=== PATIENT | male | born 1975 | race Caucasian/White ===

== ENCOUNTER 2017-06-28 09:36 | Emergency (ER) | payer MEDICAID, SELFPAY ==
[~2017-06-28] VITALS: Ht 188 cm; Wt 106.6 kg
[~2017-06-28 09:36] MED LIST: BENADRYL25 MG PO; PREDNISONE20 MG PO; RANITIDINE HCL150 MG PO
[2017-06-28 09:40] VITALS: BP 128/85
[2017-06-28 09:47] VITALS: BP 132/84
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
[2017-06-28] MEDS ORDERED: IBUPROFEN600 MG ORAL (10:46)
--- NOTE | 2017-06-28 10:57 | Emergency Room Report ---
History of Present Illness General Chief Complaint: Pain Source: Patient Present Illness HPI 42YOM walk-in with pain to base of right foot Not sure if he injured it Drinking last night, ?fell No history of gout, RA, OA. Denies previous joint pain/swelling/redness Drinks a lot of beer, eats meat/cheese Allergies: Coded Allergies: No Known Allergies (Unverified , 08/17/12) Patient History Past Medical History: none Past Surgical History: none Pertinent Family History: none Social History: Reports: alcohol use, Denies: smoking, drug use Immunizations: UTD Reviewed Nursing Documentation: PMH: Agreed, PSxH: Agreed Nursing Documentation-PMH Past Medical History: No Stated History Review of Systems All Other Systems: negative except mentioned in HPI Physical Exam Vital Signs Date Time Temp Pulse Resp B/P (MAP) Pulse Ox O2 Delivery O2 Flow Rate FiO2 06/28/17 09:40 97.0 102 15 128/85 99 Room Air Sp02 EP Interpretation: reviewed, normal General Appearance: normal inspection, well appearing, no apparent distress, alert, GCS 15, non-toxic Head: normocephalic, atraumatic Eyes: bilateral eye PERRL, bilateral eye EOMI ENT: normal ENT inspection, hearing grossly normal, normal voice Neck: normal inspection, full range of motion, supple, no bony tend Respiratory: normal inspection, lungs clear, normal breath sounds, no respiratory distress, no retraction, no wheezing Cardiovascular #1: regular rate, rhythm, no edema Gastrointestinal: normal inspection, normal bowel sounds, non tender, soft, no guarding, no hernia Genitourinary: no CVA tenderness Musculoskeletal: other - Right foot: base of right big toe tender, mild swelling. ROM intact. No deformity. No appreciable warmth. No erythema Neurologic: normal inspection, alert, oriented x3, responsive, environmental programs manager III-XII nml as tested, motor strength/tone normal, speech normal Psychiatric: normal inspection, judgement/insight normal, mood/affect normal Medical Decision Making Diagnostic Impression: Primary Impression: Right foot pain ER Course VSS. Afebrile No sign of infection, cellulitis No appreciable warmth, swelling ?gout Xray negative for fx Indomethacin given in ED Rx Ibuprofen PMD followup DC home Last Vital Signs Date Time Temp Pulse Resp B/P (MAP) Pulse Ox O2 Delivery O2 Flow Rate FiO2 06/28/17 09:47 96.9 101 14 132/84 99 Room Air Status: improved Disposition: HOME, SELF-CARE Condition: Improved Scripts Ibuprofen* (MOTRIN*) 600 Mg Tablet 600 MG ORAL THREE TIMES A DAY for 7 Days, #30 TAB 0 Refills Prov: MARQUIS GOMEZ M.D. 06/28/17 Patient Instructions: Foot Sprain Additional Instructions: - Place foot in ice/water bath 3x a day - Take ibuprofen up to 3x a day for pain MARQUIS GOMEZ M.D. Jun 28, 2017 10:57
[2017-06-28] MEDS ORDERED: Indomethacin 75 MG CAPSULE.ER ORAL SCH (11:00)
[2017-06-28 11:07] VITALS: BP 132/84
== END 2017-06-28 11:07 | disposition home or self-care (01) ==
LOC: EMR 10:05
DX: M79.671 Pain in right foot (principal); M79.5 Residual foreign body in soft tissue
CPT/HCPCS: 99283

== ENCOUNTER 2018-02-03 18:51 | Emergency (ER) | payer MEDICAID ==
[~2018-02-03] VITALS: Ht 188 cm; Wt 113.4 kg
[~2018-02-03 18:51] MED LIST changes: +IBUPROFEN600 MG ORAL
[2018-02-03] MEDS ORDERED: NKM (19:03)
[2018-02-03 19:20] VITALS: BP 116/79
[2018-02-03] MEDS ORDERED: CEPHALEXIN500 MG ORAL (19:33)
[2018-02-03] MEDS ORDERED: BACTRIM DS TAB1 EAC1 ORAL (19:33)
--- NOTE | 2018-02-03 19:34 | Emergency Room Report ---
History of Present Illness General Chief Complaint: Skin Rash/Abscess Source: Patient Present Illness HPI 42 yo male patient presents to ER complaining of infection on right leg x2 days. Patient reports small pimple on leg appeared. States he "popped it" and noticed his leg got much more red and swollen the next day. Patient able to ambulate independently. Patient denies past medical hx. Reports smoking cigarettes and weed. Denies drug use. Denies fever, chest pain, SOB, vomiting, diarrhea. Allergies: Coded Allergies: No Known Allergies (Unverified , 02/03/18) Patient History Past Medical History: see triage record Reviewed Nursing Documentation: PMH: Agreed; PSxH: Agreed Nursing Documentation-PMH Past Medical History: No Stated History Review of Systems All Other Systems: negative except mentioned in HPI Physical Exam Vital Signs Date Time Temp Pulse Resp B/P (MAP) Pulse Ox O2 Delivery O2 Flow Rate FiO2 02/03/18 18:59 98.6 84 16 116/79 95 Room Air 98.6 Sp02 EP Interpretation: reviewed, normal General Appearance: well appearing, no apparent distress, alert, GCS 15, non- toxic Head: normocephalic, atraumatic Eyes: bilateral eye normal inspection, bilateral eye PERRL Respiratory: lungs clear, normal breath sounds, no rhonchi, no respiratory distress, no accessory muscle use, no wheezing, speaking full sentences Cardiovascular #1: regular rate, rhythm, no edema Cardiovascular #2: 2+ dorsalis pedis (R), 2+ dorsalis pedis (L) Musculoskeletal: back normal, digits/nails normal, gait/station normal, normal range of motion, non-tender Neurologic: alert, oriented x3, responsive, motor strength/tone normal, sensory intact Psychiatric: mood/affect normal Skin: other - cellulitis right lateral aspect of lower lecm x7cm, indurated, umu with pressure, no active draining,dried pus and blood present Lymphatic: no adenopathy Medical Decision Making PA Attestation Dr. Shelley is my supervising Physician whom patient management has been discussed with. Diagnostic Impression: Primary Impression: Cellulitis ER Course Pt. presents to the ED c/o cellulitis. Ddx considered but are not limited to rash, cellulitis, abscess, atopic dermatitis. Vital signs: are WNL, pt. is afebrile ORDERS: None required at this time, the diagnosis is clinical ER COURSE: Area of infection circled with skin marking pen. 10cm x 7cm, indurated. Does not require drainage at this time, already draining , indurated. Will treat with abx. Will cover for MRSA. Wound cleaned, covered with Bacitracin, dressed in sterile gauze. Return to ER or got to PCP in 2 days for recheck. May require IV abx at that time. Contact primary care provider to set up appointment. DISCHARGE: -Rx provided for Keflex -Rx provided for Bactrim At this time pt. is stable for d/c to home. Patient resting comfortably in no acute distress, nontoxic appearing, smiling. Will provide printed patient care instructions, and any necessary prescriptions. Patient instructed to complete current course of antibiotics. Care plan and follow up instructions have been discussed with the patient prior to discharge. Patient instructed to follow-up with primary care provider in 2 days for wound check and in 7 days for repeat wound check. Patient questions asked and answered. Patient reports understanding and agreement to treatment plan. ER precautions given. Patient instructed to return to ER immediately for any new or worsening of symptoms including but not limited to increasing SOB, persistent fever, intractable vomiting, calf pain. Last Vital Signs Date Time Temp Pulse Resp B/P (MAP) Pulse Ox O2 Delivery O2 Flow Rate FiO2 02/03/18 18:59 98.6 84 16 116/79 95 Room Air 98.6 Disposition: HOME, SELF-CARE Condition: Stable Scripts Trimethoprim/Sulfamethoxazole 160/800* (BACTRIM DS TABLET*) 1 Each Tablet 1 TAB ORAL TWICE A DAY for 7 Days, #14 TAB Prov: Harry Zabala 02/03/18 Cephalexin* (KEFLEX*) 500 Mg Capsule 500 MG ORAL EVERY 12 HOURS, #14 CAP 0 Refills Prov: Harry Zabala 02/03/18 Patient Instructions: Cellulitis, [id number] Additional Instructions: Followup with primary care provider or return to ER in 2 days for wound check. Take medications as directed. Patient questions asked and answered. ER precautions given, patient instructed to return to ER immediately for any new or worsening of symptoms spreading of infection beyond pen marking on skin, fever, intractable vomiting. Harry Zabala Feb 03, 2018 19:34
[2018-02-03] MEDS: Bacitracin Oint UD TOPIC ONE (19:42)
[2018-02-03 19:47] VITALS: BP 116/79
== END 2018-02-03 20:15 | disposition home or self-care (01) ==
LOC: EMR 20:08
DX: L03.115 Cellulitis of right lower limb (principal)
CPT/HCPCS: 99284

== ENCOUNTER 2018-02-05 15:50 | Emergency (ER) | payer MEDICAID ==
[~2018-02-05] VITALS: Ht 188 cm; Wt 113.4 kg
[~2018-02-05 15:50] MED LIST changes: +BACTRIM DS TAB1 EAC1 ORAL; +CEPHALEXIN500 MG ORAL; +NKM
[2018-02-05] MEDS ORDERED: MUPIROCIN22 GM TOPIC (17:13)
[2018-02-05] MEDS ORDERED: Tetanus/Diptheria/Pertussis Vaccine 0.5ml Syr IM ONE (17:30)
[2018-02-05 17:46] VITALS: BP_SYST 116; BP_SYST 99; BP_DIAS 70; BP_DIAS 82
--- NOTE | 2018-02-05 21:39 | Emergency Room Report ---
History of Present Illness General Chief Complaint: Skin Rash/Abscess Source: Patient Present Illness HPI 42-year-old male presents to the emergency department for 48 hour follow-up after being discharged here from our emergency department 2 days ago with prescription for antibiotics and diagnosis of cellulitis of the right calf. Pt reports pain has improved and is now 2/10 in severity. Patient states that he has a blue marker on his skin and he continues to have erythema contained within this borders. Patient denies fevers, chills, worsening of his symptoms. Patient states he sees very mild if any improvement. Patient states that he started this antibiotic last night. Patient states he originally had what seemed like a pimple on his right calf which he popped. Patient states that wound progressed in size, erythema presented and he began having more tenderness. Patient states pain is exacerbated upon palpation. He states that he does not know when his last tetanus vaccination was and he did not receive one at his most recent visit here in the ED. Denies numbness tingling or loss of sensation or gross motor movements of the extremities, incontinence of bowel or bladder. Denies CP, Palpitations, LOC, AMS, dizziness, Changes in Vision, Sensation, paresthesias, or a sudden severe headache. Allergies: Coded Allergies: No Known Allergies (Unverified , 02/03/18) Patient History Past Medical History: see triage record Past Surgical History: none Pertinent Family History: none Immunizations: other - unknown- tetanus Reviewed Nursing Documentation: PMH: Agreed; PSxH: Agreed Nursing Documentation-PMH Past Medical History: No Stated History Review of Systems All Other Systems: negative except mentioned in HPI Physical Exam Vital Signs Date Time Temp Pulse Resp B/P (MAP) Pulse Ox O2 Delivery O2 Flow Rate FiO2 02/05/18 15:55 98.0 95 18 99/70 96 Room Air 98.1 Sp02 EP Interpretation: reviewed, normal General Appearance: no apparent distress, alert, GCS 15, non-toxic Head: normocephalic, atraumatic ENT: hearing grossly normal, normal voice Neck: full range of motion Respiratory: lungs clear, normal breath sounds, speaking full sentences Cardiovascular #1: regular rate, rhythm Musculoskeletal: back normal, gait/station normal, normal range of motion, other - no significant swelling noted of the right calf. mild if any. , tender - mild ttp to area of erythema on the right lateral calf. Neurologic: alert, oriented x3, responsive, motor strength/tone normal, sensory intact, normal gait, speech normal, grossly normal Psychiatric: judgement/insight normal Skin: no rash, warm/dry, well hydrated, other - right lateral calf cellulitis about small non-fluctuant, draining abscess. size of wound opening is 0.4cm. Erythema is contained within the border of previously marked skin. no progression. Lymphatic: no adenopathy Medical Decision Making PA Attestation Dr. Suarez is my supervising Physician whom patient management has been discussed with. Diagnostic Impression: Primary Impression: Abscess Additional Impression: Cellulitis of right lower leg ER Course 42-year-old male presents to the emergency department for 48 hour follow-up after being discharged here from our emergency department 2 days ago with prescription for antibiotics and diagnosis of cellulitis of the right calf. Pt reports pain has improved and is now 2/10 in severity. Patient states that he has a blue marker on his skin and he continues to have erythema contained within this borders. Patient denies fevers, chills, worsening of his symptoms. Patient states he sees very mild if any improvement. Patient states that he started this antibiotic last night. Patient states he originally had what seemed like a pimple on his right calf which he popped. Patient states that wound progressed in size, erythema presented and he began having more tenderness. Patient states pain is exacerbated upon palpation. He states that he does not know when his last tetanus vaccination was and he did not receive one at his most recent visit here in the ED. Denies numbness tingling or loss of sensation or gross motor movements of the extremities, incontinence of bowel or bladder. Denies CP, Palpitations, LOC, AMS, dizziness, Changes in Vision, Sensation, paresthesias, or a sudden severe headache. Ddx considered but are not limited to cellulitis,abscess, necrotizing fasciitis , DVT, fracture just to name a few. Vital signs: are WNL, pt. is afebrile H&PE are most consistent with right lateral calf cellulitis about small non- fluctuant, draining abscess. size of wound opening is 0.4cm. Erythema is contained within the border of previously marked skin. no progression. ORDERS: none required at this time, the diagnosis is clinical ED INTERVENTIONS: -Tdap vaccination is administered. - I discussed with patient that since he just began taking his antibiotic medication last night that I feel it is still too soon to determine prognosis of his cellulitis. Discussed the patient that he needs to follow-up in another 48 hours either here in the ED or with his primary care provider. Continue previously prescribed antibiotics and start topical antibiotic. ED return precautions were given. DISCHARGE: At this time pt. is stable for d/c to home. Will provide printed patient care instructions, and any necessary prescriptions. Care plan and follow up instructions have been discussed with the patient prior to discharge. Last Vital Signs Date Time Temp Pulse Resp B/P (MAP) Pulse Ox O2 Delivery O2 Flow Rate FiO2 02/05/18 17:46 98.7 72 18 116/82 97 Room Air 98.7 Disposition: HOME, SELF-CARE Condition: Stable Scripts Mupirocin* (MUPIROCIN*) 22 Gm Oint...g. 1 APPLIC TOPIC THREE TIMES A DAY, #22 GM Prov: Josselin Antonio 02/05/18 Referrals: CHELO MAZARIEGOS (PCP) Patient Instructions: Abscess Additional Instructions: Continue Previously Prescribed antibiotics. Also begin applying prescribed topical antiobiotic cream. You need to either follow up with here, or with your PCP after an additional 48 hours. return sooner if your symptoms become worse. Follow up with a Primary Care Provider in 3-5 days, even if your symptoms have resolved. --Please review list of primary care clinics, if you do not already have a primary care provider - Please note that this Emergency Department Report was dictated using [employer] serv[employer] helper technology software, occasionally this can lead to erroneous entry secondary to interpretation by the dictation equipment. Josselin Antonio Feb 05, 2018 21:39
== END 2018-02-05 17:46 | disposition home or self-care (01) ==
LOC: EMR 16:44
DX: L02.415 Cutaneous abscess of right lower limb (principal); L03.115 Cellulitis of right lower limb; Z23 Encounter for immunization
CPT/HCPCS: 90471; 90715; 99283